=== PATIENT | female | born 1955 | race Caucasian/White ===

== ENCOUNTER 2016-07-12 07:58 | Day surgery (SDC) | payer OTHER ==
[2016-07-10 08:29] VITALS: BMI 30.9
[~2016-07-12 07:58] MED LIST: LACTATED RINGERS 1,000 ML IV SCH; MOXIFLOXACIN HCL 0.5% DROPS 3 ML BTL OP ONE; TETRACAINE 0.5% OPHTH (PF) DROPS 4 ML BTL OP ONE; TIMOLOL 0.5% OPHTH SOLN (PF) 0.2 ML DROPERETTE OP ONE
[2016-07-12] MEDS: PHENYLEPHRINE 2.5% OPHTH DRP 2ML OP NR ×3 (08:33→08:50)
[2016-07-12] MEDS: CYCLOPENTOLATE 1% OPHTH SOLN 2 ML BTL OP ONE ×3 (08:37→08:53)
[2016-07-12 08:50] LABS: Glucose,Whole Blood 94 mg/dL (75-99)
[2016-07-12 08:59] VITALS: RESP 16; TEMP 98.4
[2016-07-12] MEDS ORDERED: MIDAZOLAM 2 MG/2 ML VIAL ONE (09:52)
[2016-07-12] MEDS ORDERED: fentaNYL (PF) 50 MCG/ML 2 ML AMP ONE (09:52)
[2016-07-12] MEDS ORDERED: DUOVISC KIT (GREEN BOX) INTRAOCULA ONE (09:57)
[2016-07-12] MEDS ORDERED: EPINEPHrine (PF) 0.3 ML in BALANCED SALT IRRIG SOLN COMB2 500 ML IRRIGATION ONE (09:57)
[2016-07-12] MEDS ORDERED: LIDOCAINE 1% (PF) 10MG/ML VIAL SQ ONE (09:57)
[2016-07-12] MEDS ORDERED: BALANCED SALT IRRIG SOLN COMB2 15 ML IRRIG.SOLN INTRAOCULA ONE (09:57)
--- NOTE | 2016-07-12 10:24 | P.OP ---
Date of Procedure: 07/12/16 Preoperative Diagnosis: NS & CS Postoperative Diagnosis: same Procedure(s) Performed: PIOL, OD Implants: PCB0 24.00 Anesthesia: MAC Surgeon: Kevin Skelton Estimated Blood Loss (ml): 0 Pathology: none sent Condition: stable Disposition: same day Indications for Procedure: blurry vision Operative Findings: No complications
[2016-07-12 10:55] VITALS: BP 147/64; PULSE 80
--- NOTE | 2016-07-12 19:12 | OP ---
DATE OF SERVICE: 07/12/2016 SURGEON: JOSIE MCLAUGHLIN MD MOTOR VEHICLE DISPATCHER: PREOPERATIVE DIAGNOSIS: Nuclear sclerosis, cortical sclerosis and posterior subcapsular cataract, right eye. POSTOPERATIVE DIAGNOSIS: Nuclear sclerosis, cortical sclerosis and posterior subcapsular cataract, right eye. OPERATION: Phacoemulsification of cataract and intraocular lens implant of the right eye. ANESTHESIA: ESTIMATED BLOOD LOSS: Zero. SPECIMENS REMOVED: None. COMPLICATIONS: NARRATIVE: After obtaining the appropriate consent, the patient was brought to the Operating Room where the patient was placed under cardiac monitoring and prepped and draped in the usual sterile manner. At the 11 o'clock position a 15-degree super sharp blade was used to create a paracentesis followed by instillation of 1% Xylocaine MPF 50:50 mix with BSS into the anterior chamber. This was followed by Duovisc to stabilize the anterior chamber. At the 9 o'clock position a self-sealing corneal flap incision was created using 2.8 mm erika keratome. A cystotome was used to initiate a continuous tear capsulorrhexis which was completed with the Utrata forceps. A Binkhorst cannula was used to hydrodissect the lens nucleus followed by hydrodelineation. Phacoemulsification of the lens was performed utilizing phacochop in 22.53 seconds at 15% power. The remaining cortical material was removed using the irrigation aspiration mode followed by additional 1% Xylocaine MPF into the anterior chamber followed by viscoelastic to stabilize the capsular bag. An ANTOINE PCB00 24.0 diopter posterior chamber lens was placed into the capsular bag without difficulty. The remaining viscoelastic material was removed from the anterior chamber with the irrigation/aspiration. Balanced salt solution was used to normalize the intraocular pressure. The incision was checked for watertight integrity. The patient then received 2 drops of 0.5% timolol followed by 2 drops Vigamox, was lightly patched and shielded in the usual manner. There were no complications from the procedure. The patient tolerated the procedure well and was returned to recovery in good condition.
== END 2016-07-12 11:15 | disposition home or self-care (01) ==
LOC: OR 07:58
PROVIDERS: ATTEND Ophthalmology
DX: H25.13 Age-related nuclear cataract, bilateral (principal); H25.011 Cortical age-related cataract, right eye; H25.041 Posterior subcapsular polar age-related cataract, right eye; H52.03 Hypermetropia, bilateral; H52.223 Regular astigmatism, bilateral; H52.4 Presbyopia; I25.2 Old myocardial infarction; I10 Essential (primary) hypertension; F17.200 Nicotine dependence, unspecified, uncomplicated; F32.9 Major depressive disorder, single episode, unspecified; E78.5 Hyperlipidemia, unspecified; F39 Unspecified mood [affective] disorder; Z79.02 Long term (current) use of antithrombotics/antiplatelets; Z79.82 Long term (current) use of aspirin; Z79.51 Long term (current) use of inhaled steroids; Z79.899 Other long term (current) drug therapy; Z99.81 Dependence on supplemental oxygen; Z88.0 Allergy status to penicillin
CPT/HCPCS: 66984; C1780; J2250; J0171; J3010; J2001

== ENCOUNTER 2016-07-26 06:26 | Day surgery (SDC) | payer OTHER ==
[2016-07-24 15:09] VITALS: BMI 30.9
[~2016-07-26 06:26] MED LIST changes: +LIDOCAINE 1% 20 ML VIAL (10MG/ML) FOR IV START INTRADERMA PRN
[2016-07-26] MEDS: CYCLOPENTOLATE 1% OPHTH SOLN 2 ML BTL OP ONE ×3 (06:35→06:50)
[2016-07-26] MEDS: PHENYLEPHRINE 2.5% OPHTH DRP 2ML OP NR ×3 (06:38→06:55)
[2016-07-26 06:58] LABS: Glucose,Whole Blood 99 mg/dL (75-99)
[2016-07-26 07:04] VITALS: RESP 16; TEMP 98.3
[2016-07-26] MEDS ORDERED: MIDAZOLAM 2 MG/2 ML VIAL ONE (07:26)
[2016-07-26] MEDS ORDERED: fentaNYL (PF) 50 MCG/ML 2 ML AMP ONE (07:26)
[2016-07-26] MEDS ORDERED: EPINEPHrine (PF) 0.3 ML in BALANCED SALT IRRIG SOLN COMB2 500 ML IRRIGATION ONE (07:38)
[2016-07-26] MEDS ORDERED: HYALURONATE SODIUM INTRAOCULAR 1 EACH SYRINGE (12MG/ML) INTRAOCULA ONE (07:39)
[2016-07-26] MEDS ORDERED: BALANCED SALT IRRIG SOLN COMB2 15 ML IRRIG.SOLN IRRIGATION ONE (07:40)
[2016-07-26] MEDS ORDERED: LIDOCAINE 1% (PF) 10MG/ML VIAL MISCELLANE ONE (07:41)
--- NOTE | 2016-07-26 08:03 | P.OP ---
Date of Procedure: 07/26/16 Preoperative Diagnosis: NS & CS & PSC Postoperative Diagnosis: same Procedure(s) Performed: PIOL, OS Implants: PCB0 23.50 Anesthesia: MAC Surgeon: Kevin Skelton Estimated Blood Loss (ml): 0 Pathology: none sent Condition: stable Disposition: same day Indications for Procedure: blurry vision Operative Findings: no complications
[2016-07-26 08:17] LABS: Glucose,Whole Blood 94 mg/dL (75-99)
[2016-07-26 08:19] VITALS: BP 129/62; PULSE 78
--- NOTE | 2016-07-26 22:06 | OP ---
DATE OF SERVICE: 07/26/2016 SURGEON: JOSIE MCLAUGHLIN MD CERTIFIED MAINTENANCE WELDER: PREOPERATIVE DIAGNOSES: Nuclear sclerosis. Cortical sclerosis. Posterior subcapsular cataract. POSTOPERATIVE DIAGNOSES: Nuclear sclerosis. Cortical sclerosis. Posterior subcapsular cataract. OPERATION: Phacoemulsification of cataract and intraocular lens implant of the left eye. ESTIMATED BLOOD LOSS: Zero. SPECIMEN TAKEN: None. NARRATIVE: After obtaining the appropriate consent, the patient was brought to the Operating Room where the patient was placed under cardiac monitoring and prepped and draped in the usual sterile manner. At the 5 o'clock position a 15 degree super sharp blade was used to create a paracentesis followed by instillation of 1% Xylocaine MPF 50:50 mix with BSS into the anterior chamber. This was followed by Amvisc to stabilize the anterior chamber. At the 3 o'clock position a self-sealing corneal flap incision was created using 2.8 mm erika keratome. A cystotome was used to initiate a continuous tear capsulorrhexis which was completed with the Utrata forceps. A Binkhorst cannula was used to hydrodissect the lens nucleus followed by hydrodelineation. Phacoemulsification of the lens was performed utilizing phacochop in 8 seconds at 9% power. The remaining cortical material was removed using the irrigation aspiration mode followed by additional 1% Xylocaine MPF into the anterior chamber followed by viscoelastic to stabilize the capsular bag. An ANTOINE PCB00 23.5 diopters posterior chamber lens was placed into the capsular bag without difficulty. The remaining viscoelastic material was removed from the anterior chamber with the irrigation/aspiration. Balanced salt solution was used to normalize the intraocular pressure. The incision was checked for watertight integrity. The patient then received 2 drops of 0.5% timolol followed by 2 drops Vigamox, was lightly patched and shielded in the usual manner. There were no complications from the procedure. The patient tolerated the procedure well and was returned to recovery in good condition.
== END 2016-07-26 08:35 | disposition home or self-care (01) ==
LOC: OR 06:26
PROVIDERS: ATTEND Ophthalmology
DX: H25.12 Age-related nuclear cataract, left eye (principal); H25.012 Cortical age-related cataract, left eye; H25.042 Posterior subcapsular polar age-related cataract, left eye; H26.32 Drug-induced cataract, left eye; H52.03 Hypermetropia, bilateral; H52.223 Regular astigmatism, bilateral; H52.4 Presbyopia; J44.9 Chronic obstructive pulmonary disease, unspecified; I10 Essential (primary) hypertension; Z87.891 Personal history of nicotine dependence; F32.9 Major depressive disorder, single episode, unspecified; Z79.82 Long term (current) use of aspirin; Z79.02 Long term (current) use of antithrombotics/antiplatelets; Z79.51 Long term (current) use of inhaled steroids; Z79.899 Other long term (current) drug therapy; Z99.81 Dependence on supplemental oxygen; Z88.0 Allergy status to penicillin
CPT/HCPCS: 66984; C1780; J2250; J0171; J3010; J2001

== ENCOUNTER 2016-09-29 14:41 | Emergency (ER) | payer OTHER ==
[2016-09-29] MEDS ORDERED: IPRATROPIUM-ALBUTEROL 3 ML NEB INHALATION STA (15:10)
--- NOTE | 2016-09-29 15:13 | ED ---
SOB HPI - General Chief Complaint: Shortness of Breath Stated Complaint: SOB/racing heart-sent by Dr. Ibarra Time Seen by Provider: 09/29/16 15:00 Source: patient, RN notes reviewed Mode of arrival: wheelchair Limitations: no limitations - History of Present Illness Initial Comments: Patient is 60-year-old female presents to the emergency in for evaluation of shortness of breath. Patient has a history of COPD, emphysema and asthma. Patient states over the past few months having increasing shortness of breath. Patient states yesterday she's been having worsening shortness of breath. Patient does state she usually is on 3 L of supplemental O2. Patient states she went to her primary care office today and was sent here for further evaluation. Patient denies chest pain. Patient does state she has a history of OH many years ago. Patient states she has been on Plavix for many years and takes 2 aspirin per day. Patient states she hasn't smoked in 3 months. Patient states she did a breathing treatment this morning with little of symptoms. Patient denies cough. Patient states she can't take more than 10 steps without getting winded. Patient denies fevers or chills. Patient denies nausea or vomiting. Patient denies abdominal pain. Patient states she feels dizzy due to feeling short of breath. Patient denies headache. - Related Data Home Medications Medication Instructions Recorded Confirmed Montelukast [Singulair] 10 mg PO HS 12/02/13 09/29/16 PARoxetine HCL [Paxil] 40 mg PO BID 12/02/13 09/29/16 Clopidogrel [Plavix] 75 mg PO DAILY 07/10/16 09/29/16 Fluticasone/Vilanterol [Breo 1 puff INHALATION RT-DAILY 07/10/16 09/29/16 Ellipta 100-25 Mcg Inhaler] Umeclidinium Raymond [Incruse 1 puff INHALATION RT-DAILY 07/10/16 09/29/16 Ellipta] Losartan Potassium 50 mg PO DAILY 09/29/16 09/29/16 Pravastatin Sodium [Pravachol] 40 mg PO HS 09/29/16 09/29/16 buPROPion XL [Wellbutrin Xl] 150 mg PO DAILY 09/29/16 09/29/16 traZODone HCL 300 mg PO HS 09/29/16 09/29/16 Previous Rx's Medication Instructions Recorded predniSONE 50 mg PO DAILY #5 tab 09/29/16 Allergies Allergy/AdvReac Type Severity Reaction Status Date / Time amoxicillin [Amoxicillin] AdvReac Rash/Hives Verified 09/29/16 16:07 Review of Systems ROS Statement: Those systems with pertinent positive or pertinent negative responses have been documented in the HPI. ROS Other: All systems not noted in ROS Statement are negative. Past Medical History Past Medical History: Asthma, COPD, Diabetes Mellitus, Deep Vein Thrombosis (DVT ), Eye Disorder, Hyperlipidemia, Hypertension, Myocardial Infarction ([place]), Osteoarthritis (OA) Additional Past Medical History / Comment(s): uses oxygen [place] 3L 09/10. CATARACTS Last Myocardial Infarction Date:: 1996 History of Any Multi-Drug Resistant Organisms: None Reported Past Surgical History: Cholecystectomy, Heart Catheterization, Hysterectomy, Orthopedic Surgery, Tonsillectomy Additional Past Surgical History / Comment(s): foot left surgery. RT CATARACT SX Past Anesthesia/Blood Transfusion Reactions: No Reported Reaction Past Psychological History: Bipolar, Depression, Panic Disorder Smoking Status: Former smoker Past Alcohol Use History: None Reported Past Drug Use History: None Reported - Past Family History Father Family Medical History: Cancer Additional Family Medical History / Comment(s): breast Sister(s) Family Medical History: Deep Vein Thrombosis (DVT) General Exam - General Exam Comments Initial Comments: Sitting in exam room, no distress. Limitations: no limitations General appearance: alert, in no apparent distress Head exam: Present: atraumatic, normocephalic, normal inspection Eye exam: Present: normal appearance ENT exam: Present: normal exam Neck exam: Present: normal inspection Respiratory exam: Present: decreased breath sounds. Absent: respiratory distress Cardiovascular Exam: Present: regular rate, normal rhythm, normal heart sounds GI/Abdominal exam: Present: soft, normal bowel sounds. Absent: distended, tenderness, guarding, rebound, rigid Extremities exam: Present: normal inspection Back exam: Present: normal inspection Neurological exam: Present: alert, oriented X3, CN II-XII intact, normal gait Psychiatric exam: Present: normal affect, normal mood Skin exam: Present: warm, dry, intact, normal color. Absent: rash Course Vital Signs 09/29/16 09/29/16 09/29/16 14:52 15:41 15:56 Temperature 98.5 F Pulse Rate 88 80 80 Respiratory 17 Rate Blood Pressure 130/66 O2 Sat by Pulse 94 L Oximetry Medical Decision Making - Medical Decision Making Patient is a 61-year-old female presents emergency room for ventilation shortness of breath. Patient has history of COPD. Chest x-ray showed no acute findings. CT shows no acute findings. Labs show no concerning findings. EKG within normal limits. Patient was sent home with prednisone for COPD exacerbation and advised to follow-up with primary care provider on Sunday. Patient advised to return for worsening symptoms. Patient states she understands everything that was discussed with her. Case discussed with Dr. Reyna. - Lab Data Result diagrams: 09/29/16 15:30 09/29/16 15:30 Lab Results 09/29/16 09/29/16 09/29/16 Range/Units 15:30 15:30 15:30 WBC 6.7 (3.8-10.6) k/uL RBC 3.96 (3.80-5.40) m/uL Hgb 11.5 (11.4-16.0) gm/dL Hct 33.9 L (34.0-46.0) % MCV 85.7 (80.0-100.0) fL MCH 29.0 (25.0-35.0) pg MCHC 33.8 (31.0-37.0) g/dL RDW 12.9 (11.5-15.5) % Plt Count 293 (150-450) k/uL Neutrophils % 63 % Lymphocytes % 24 % Monocytes % 7 % Eosinophils % 3 % Basophils % 1 % Neutrophils # 4.2 (1.3-7.7) k/uL Lymphocytes # 1.6 (1.0-4.8) k/uL Monocytes # 0.5 (0-1.0) k/uL Eosinophils # 0.2 (0-0.7) k/uL Basophils # 0.1 (0-0.2) k/uL PT 9.5 (9.0-12.0) sec INR 0.9 (<1.2) APTT 20.8 L (22.0-30.0) sec D-Dimer 0.34 (<0.60) mg/L FEU Sodium 138 (137-145) mmol/L Potassium 4.4 (3.5-5.1) mmol/L Chloride 103 (98-107) mmol/L Carbon Dioxide 28 (22-30) mmol/L Anion Gap 7 mmol/L BUN 19 H (7-17) mg/dL Creatinine 0.94 (0.52-1.04) mg/dL Est GFR (MDRD) Af Amer >60 (>60 ml/min/1.73 sqM) Est GFR (MDRD) Non-Af >60 (>60 ml/min/1.73 sqM) Glucose 81 (74-99) mg/dL Calcium 9.2 (8.4-10.2) mg/dL Magnesium 2.0 (1.6-2.3) mg/dL Total Bilirubin 0.2 (0.2-1.3) mg/dL AST 20 (14-36) U/L ALT 35 (9-52) U/L Alkaline Phosphatase 79 (38-126) U/L Troponin I (0.000-0.034) ng/mL NT-Pro-B Natriuret Pep pg/mL Total Protein 6.4 (6.3-8.2) g/dL Albumin 3.8 (3.5-5.0) g/dL 09/29/16 09/29/16 Range/Units 15:30 15:30 WBC (3.8-10.6) k/uL RBC (3.80-5.40) m/uL Hgb (11.4-16.0) gm/dL Hct (34.0-46.0) % MCV (80.0-100.0) fL MCH (25.0-35.0) pg MCHC (31.0-37.0) g/dL RDW (11.5-15.5) % Plt Count (150-450) k/uL Neutrophils % % Lymphocytes % % Monocytes % % Eosinophils % % Basophils % % Neutrophils # (1.3-7.7) k/uL Lymphocytes # (1.0-4.8) k/uL Monocytes # (0-1.0) k/uL Eosinophils # (0-0.7) k/uL Basophils # (0-0.2) k/uL PT (9.0-12.0) sec INR (<1.2) APTT (22.0-30.0) sec D-Dimer (<0.60) mg/L FEU Sodium (137-145) mmol/L Potassium (3.5-5.1) mmol/L Chloride (98-107) mmol/L Carbon Dioxide (22-30) mmol/L Anion Gap mmol/L BUN (7-17) mg/dL Creatinine (0.52-1.04) mg/dL Est GFR (MDRD) Af Amer (>60 ml/min/1.73 sqM) Est GFR (MDRD) Non-Af (>60 ml/min/1.73 sqM) Glucose (74-99) mg/dL Calcium (8.4-10.2) mg/dL Magnesium (1.6-2.3) mg/dL Total Bilirubin (0.2-1.3) mg/dL AST (14-36) U/L ALT (9-52) U/L Alkaline Phosphatase (38-126) U/L Troponin I <0.012 (0.000-0.034) ng/mL NT-Pro-B Natriuret Pep 89 pg/mL Total Protein (6.3-8.2) g/dL Albumin (3.5-5.0) g/dL 09/29/16 15:13 Normal sinus rhythm, ventricular rate 87 bpm, AL interval 162 ms, QRS duration 88 ms, QT/QTC 382/459 ms - Radiology Data Radiology results: report reviewed, image reviewed Disposition Clinical Impression: COPD exacerbation Disposition: HOME SELF-CARE Condition: Good Instructions: COPD (Chronic Obstructive Pulmonary Disease) (ED) Additional Instructions: Take prednisone as directed. Continue taking at home medications as needed. Please follow-up with primary care provider Sunday for reevaluation. If any new symptom arises or symptoms worsen, return to ER as soon as possible. Prescriptions: predniSONE 50 mg PO DAILY #5 tab Referrals: Jay Ibarra DO [Primary Care Provider] - 1-2 days Time of Disposition: 19:00
[2016-09-29 15:45] LABS: Basophils # (A) 0.1 k/uL (0-0.2); Basophils % (A) 1 %; CH 28.6; CHCM 33.5; Eosinophils # (A) 0.2 k/uL (0-0.7); Eosinophils % (A) 3 %; HCT 33.9 % (34.0-46.0); HDW 2.47; HGB 11.5 gm/dL (11.4-16.0); Luc # (Auto) 0.18; Luc % (Auto) 3; Lymphocytes # (A) 1.6 k/uL (1.0-4.8); Lymphocytes % (A) 24 %; MCHC 33.8 g/dL (31.0-37.0); MCV 85.7 fL (80.0-100.0); Mean Platelet Volume 6.2; Monocytes # (A) 0.5 k/uL (0-1.0); Monocytes % (A) 7 %; Neutrophils # (A) 4.2 k/uL (1.3-7.7); Neutrophils % (A) 63 %; RBC 3.96 m/uL (3.80-5.40); RDW 12.9 % (11.5-15.5); WBC 6.7 k/uL (3.8-10.6); WBC (Perox) 7.51
[2016-09-29 15:51] LABS: ALT 35 U/L (9-52); AST 20 U/L (14-36); Alkaline Phosphatase 79 U/L (38-126); Anion Gap 7 mmol/L; Blood Urea Nitrogen 19 mg/dL (7-17); Calcium 9.2 mg/dL (8.4-10.2); Carbon Dioxide 28 mmol/L (22-30); Chloride 103 mmol/L (98-107); Glucose 81 mg/dL (74-99); Non-African American GFR(MDRD) >60 (>60 ml/min/1.73 sqM); Potassium 4.4 mmol/L (3.5-5.1); Sodium 138 mmol/L (137-145); Total Bilirubin 0.2 mg/dL (0.2-1.3); Total Protein 6.4 g/dL (6.3-8.2)
[2016-09-29 15:59] LABS: INR 0.9 (<1.2); Partial Thromboplastin Time 20.8 sec (22.0-30.0); Prothrombin Time 9.5 sec (9.0-12.0)
--- NOTE | 2016-09-29 16:35 | XR ---
EXAMINATION TYPE: XR chest 2V DATE OF EXAM: 09/29/2016 COMPARISON: 08/17/2014 TECHNIQUE: PA and lateral views submitted. HISTORY: Difficulty breathing FINDINGS: Linear changes left lower lobe. No pneumothorax or pleural effusion. Arthropathy of the shoulders. Mi ld hypertrophic changes spine. Hyperinflation suggests COPD. Prominence of the AP window again noted which could be related to ventricular enlargement. Aortic ectasia or adenopathy less likely. Findings stable. IMPRESSION: 1. COPD. There is nodular prominence of the left suprahilar region. This was also noted in 2015 appea r stable. Could be related to atrial chamber enlargement, aortic aneurysm, or adenopathy. Correlate c linically and if necessary with CT scan.
[2016-09-29] MEDS ORDERED: RX INFO: IV CONTRAST WAS GIVEN 1 EACH MISC MISCELLANE PRN (17:03)
--- NOTE | 2016-09-29 18:40 | CT ---
EXAMINATION TYPE: CT angio thoracic/abd aorta wo and w contrast and w 3-D volume rendering at [employer] workstation DATE OF EXAM: 09/29/2016 COMPARISON: Comparison: 02/01/2010 HISTORY: sent by PCP for JUDI, increased HR. hx of asthma, COPD, emphysema. no prior. 100cc omni [address] TECHNIQUE: Departmental CT protocol, DLP 2319 mGycm. Automated Exposure Control for Dose Reduction was Utilized. Multiple 3-D volume rendered postprocessing images were obtained at an independent wor kstation and reviewed. CONTRAST: CT scan of the thorax, abdomen and pelvis is performed with IV Contrast, patient injected w ith 100 mL of Omnipaque 300. FINDINGS: LUNGS: The lungs are grossly clear, there is no concerning parenchymal mass or nodule identified. T here is no pleural effusion or pneumothorax seen. The tracheobronchial tree is patent. MEDIASTINUM: Pulmonary arterial tree is well-opacified and there is no evidence of pulmonary embolus. The central pulmonary arteries are mildly prominent in caliber, this can correlate with a clinical d iagnosis of pulmonary hypertension. Coronary calcifications are noted. There is no cardiomegaly. No pericardial effusion. There are no greater than 1 cm hilar or mediastinal lymph nodes. LIVER/GB: No significant abnormality is appreciated. PANCREAS: No significant abnormality is seen. SPLEEN: No significant abnormality is seen. ADRENALS: No significant abnormality is seen. KIDNEYS: No significant abnormality is seen. BOWEL: No significant abnormality is seen. GENITAL ORGANS: No gross abnormality seen. LYMPH NODES: No greater than 1cm abdominal or pelvic lymph nodes are appreciated. OSSEOUS STRUCTURES: No significant abnormality is seen. VASCULATURE: Atherosclerotic intimal calcifications are seen throughout the aortoiliac arterial anato my.The venous structures are unremarkable. IMPRESSION: No acute process.
[2016-09-29] MEDS ORDERED: methylPREDNISolone SOD SUCCI 125 MG/2 ML VIAL IV STA (19:01)
[2016-09-29 19:13] VITALS: BP 133/63; PULSE 82; RESP 20; TEMP 97.8
== END 2016-09-29 19:21 | disposition home or self-care (01) ==
LOC: EC 14:41
DX: J44.1 Chronic obstructive pulmonary disease with (acute) exacerbation (principal); I25.2 Old myocardial infarction; F31.9 Bipolar disorder, unspecified; J43.9 Emphysema, unspecified; Z79.82 Long term (current) use of aspirin; Z79.899 Other long term (current) drug therapy; Z79.02 Long term (current) use of antithrombotics/antiplatelets; Z79.51 Long term (current) use of inhaled steroids; Z88.0 Allergy status to penicillin; Z87.891 Personal history of nicotine dependence
CPT/HCPCS: 99285; 96374; 36415; 94640; 93005; 85379; 83880; 80053; 83735; 84484; 85025; 85610; 85730; 71020; 75635; 71275; J2930; Q9967